=== PATIENT | male | born 1975 | race Caucasian/White ===

== ENCOUNTER 2018-07-04 20:41 | Emergency (ER) | payer OTHER ==
--- NOTE | 2018-07-06 10:44 | EDM.PDOC ---
ED HPI GENERAL MEDICAL PROBLEM - General Chief Complaint: General Stated Complaint: Fell and hit head Time Seen by Provider: 07/04/18 20:50 Source of Information: Reports: Patient History Limitations: Reports: No Limitations - History of Present Illness INITIAL COMMENTS - FREE TEXT/NARRATIVE: This is a 42yo M here for a recent fall at ground level while helping to push a car out of the snow. He slipped and fell backwards landing on his back side of the head. He was witness to roll his eyes back and lose consciousness briefly for seconds. He denies any current symptoms but does have occipital scalp tenderness and swelling. He denies any blurry vision, no headache, no weakness or other symptoms. He is alert and oriented. Onset: Sudden Duration: Resolved Prior to Arrival Location: Reports: Head Quality: Reports: Ache, Dull Severity: Mild Improves with: Reports: None Worsens with: Reports: None Headache Pain Score (Numeric/FACES): 2 - Related Data Allergies Allergy/AdvReac Type Severity Reaction Status Date / Time codeine Allergy Cannot Verified 07/04/18 23:21 Remember Penicillins Allergy Cannot Verified 07/04/18 23:21 Remember Home Meds: Home Meds Aspirin 81 mg PO DAILY 07/04/18 [History] Cetirizine [ZyrTEC] 10 mg PO DAILY 07/04/18 [History] Fluticasone Propionate [Flonase] 16 gm NS ASDIRECTED 07/04/18 [History] Lisinopril 10 mg PO DAILY 07/04/18 [History] NIFEdipine [Nifedipine] 20 mg PO DAILY 07/04/18 [History] hydroCHLOROthiazide [Hydrochlorothiazide] 25 mg PO DAILY 07/04/18 [History] Past Medical History Cardiovascular History: Reports: Hypertension Respiratory History: Reports: Other (See Below) Other Respiratory History: Environmental Allergies Neurological History: Reports: Concussion, Other (See Below) Other Neuro History: Hx concussion several years ago Social & Family History - Family History Family Medical History: Noncontributory - Tobacco Use Smoking Status *Q: Unknown Ever Smoked Second Hand Smoke Exposure: No - Caffeine Use Caffeine Use: Reports: Coffee, Energy Drinks, Soda - Recreational Drug Use Recreational Drug Use: No ED ROS GENERAL - Review of Systems Review Of Systems: ROS reveals no pertinent complaints other than HPI. ED EXAM, GENERAL - Physical Exam Exam: See Below Exam Limited By: No Limitations General Appearance: Alert, WD/WN, No Apparent Distress Eye Exam: Bilateral Eye: EOMI, PERRL Ears: Normal External Exam Nose: Normal Inspection Throat/Mouth: Normal Inspection Head: Atraumatic, Normocephalic Neck: Normal Inspection, Supple, Non-Tender Respiratory/Chest: No Respiratory Distress, Lungs Clear, Normal Breath Sounds Cardiovascular: Normal Peripheral Pulses, Regular Rate, Rhythm GI/Abdominal: Normal Bowel Sounds Extremities: Normal Inspection, Normal Range of Motion, Non-Tender, No Pedal Edema, Normal Capillary Refill Neurological: Alert, Oriented, CN II-XII Intact, Normal Cognition, Normal Gait, Normal Reflexes, No Motor/Sensory Deficits Skin Exam: Warm, Dry, Intact Course - Vital Signs Last Recorded V/S: Last Vital Signs Temp 36.8 C 07/04/18 20:58 Pulse 115 H 07/04/18 20:58 Resp 20 07/04/18 20:58 BP 147/92 H 07/04/18 20:58 Pulse Ox 97 07/04/18 20:58 Departure - Departure Time of Disposition: 21:10 Disposition: Home, Self-Care 01 Condition: Good Clinical Impression: Concussion Qualifiers: Encounter type: initial encounter Loss of consciousness presence/duration: with LOC of 30 min or less Qualified Code(s): S06.0X1A - Concussion with loss of consciousness of 30 minutes or less, initial encounter - Discharge Information Instructions: Concussion, Adult, [id number] Referrals: PCP,None [Primary Care Provider] - Forms: ED Department Discharge Additional Instructions: Be sure to monitor for any neurological changes such as increased amount of headaches, head pressure, balance or coordination issues, altered mental status/ confusion. Should any of these symptoms occur, return to be seen right away. Diet and activity as tolerated. Limit exposure to electronics/screen time, bright lights as this can worsen symptoms. Follow up with regular provider when you return home. Call with any questions. - Problem List & Annotations (1) Concussion SNOMED Code(s): 805177131 Code(s): S06.0X9A - CONCUSSION W LOSS OF CONSCIOUSNESS OF UNSP DURATION, INIT Status: Acute Priority: High Qualifiers: Encounter type: initial encounter Loss of consciousness presence/duration: with LOC of 30 min or less Qualified Code(s): S06.0X1A - Concussion with loss of consciousness of 30 minutes or less, initial encounter - Problem List Review Problem List Initiated/Reviewed/Updated: Yes - Assessment/Plan Plan: Counseled on concussion plan of care and management. Discussed close monitoring over the next week and very close monitoring during the next 48hours. Patient agrees with plan of care and f/u. Patient will fu with his PCP when he returns home for further concussion checks and neuro checks.
== END 2018-07-04 21:35 | disposition home or self-care (01) ==
LOC: LB.ED 20:41
DX: S06.0X1A Concussion with loss of consciousness of 30 minutes or less, initial encounter (principal); Z88.5 Allergy status to narcotic agent; Z88.0 Allergy status to penicillin; I10 Essential (primary) hypertension; Z79.82 Long term (current) use of aspirin; W00.0XXA Fall on same level due to ice and snow, initial encounter
CPT/HCPCS: 99283